=== PATIENT | male | born 1935 | race Caucasian/White ===

== ENCOUNTER → 2021-01-16 | Outpatient (CLI) | payer MEDICARE ==
[~2021-01-16] MED LIST: AMIO200T3 PO; AVOD0.5C PO; CRES5TAB PO; CYCL-707 PO; FLOM0.4C39 PO; HYDR2TAB2 PO; ISOVUE-300 61% 50ML VIAL As Ordered ONE; LIDOCAINE 1% MDV 20ML VIAL As Ordered ONE; LOSA50TA5 PO; MAGN500T6 PO; MAPA325T8 PO; META1TAB22 PO; PLAV1TAB2 PO; PRIL20CA9 PO; TRIAMCINOLONE ACETONIDE SUSP 40 MG/ML VIAL (J3301) As Ordered ONE
--- NOTE | 2021-01-16 17:33 | REP ---
INDICATION: LT HIP O A W/ PAIN. COMPARISON: None. TECHNIQUE: The procedure was performed under the direct supervision of Dr. Araujo. The benefits and risks including but not limited to pain infection and bleeding and anaphylaxis were explained to the patient and informed consent was obtained. The left femoral neck was localized using fluoroscopic guidance. The skin was prepped and draped in a sterile fashion. 1% lidocaine was used as a local anesthetic. Using fluoroscopic guidance a 22-gauge spinal needle was inserted and advanced to the femoral neck. 0.5 ml of Conray 43 was injected to verify placement. 6 cc of a solution containing 5 mL of 1% lidocaine and 1 ml of Kenalog 40 mg was injected. The needle was then removed. The patient tolerated the procedure well and there were no immediate complications. Less than 6 seconds of fluoro time was utilized for this procedure. FINDINGS: None IMPRESSION: Fluoroscopically guided left hip injection. <Electronically signed by Kurt Navarro > 01/16/21 151 <Electronically signed by Jean Paul Araujo > 01/16/21 [id number]
== END ==
LOC: M RADPRO 09:57
PROVIDERS: ATTEND Orthopaedic Surgery
DX: M16.12 Unilateral primary osteoarthritis, left hip (principal)
CPT/HCPCS: 20610; 77002; J3301; Q9967

== ENCOUNTER → 2023-09-11 | Outpatient (CLI) | payer MEDICARE ==
[~2023-09-11] MED LIST changes: +ALLO100T PO; -AMIO200T3 PO; +AMIO200T49 PO; +AMLO25TA PO; +CLOP75TA99 PO; +FINA5TAB2 PO; -ISOVUE-300 61% 50ML VIAL As Ordered ONE; +KETO10TAB PO; -PLAV1TAB2 PO; -TRIAMCINOLONE ACETONIDE SUSP 40 MG/ML VIAL (J3301) As Ordered ONE; +asa
[2023-09-11 09:26] VITALS: TEMP 97.4
[2023-09-11 09:54] LABS: INR 1.23; PROTHROMBIN TIME 15.1 SECONDS (12.5-14.5)
[2023-09-11 11:11] VITALS: BP 152/70; O2SAT 98
== END ==
LOC: M IRPRO 09:12
PROVIDERS: ATTEND Nurse Practitioner Family
DX: N28.1 Cyst of kidney, acquired (principal)

== ENCOUNTER 2023-09-16 18:47 | Emergency (ER) | payer MEDICARE ==
[~2023-09-16] VITALS: Ht 172.7 cm; Wt 89.3 kg
[~2023-09-16 18:47] MED LIST changes: -LIDOCAINE 1% MDV 20ML VIAL As Ordered ONE
[2023-09-16 18:52] VITALS: TEMP 99.7
[2023-09-16 20:01] LABS: BASO % 0.2 % (0.0-1.0); EOS % 0.3 % (0.0-3.0); HEMATOCRIT 36.2 % (42.0-52.0); HEMOGLOBIN 11.9 g/dl (13.5-17.5); LYMPH # 0.7 10^3/uL (1.5-5.0); LYMPH % 7.5 % (24.0-44.0); MEAN CORPUSCULAR HEMOGLOBIN 30.6 pg (27.0-33.0); MEAN CORPUSCULAR HGB CONC 32.9 g/dl (32.0-36.5); MEAN CORPUSCULAR VOLUME 93.1 fl (80.0-96.0); MONO # 0.8 10^3/uL (0.0-0.8); MONO % 8.5 % (2.0-8.0); NEUTROPHILS # 7.9 10^3/uL (1.5-8.5); NEUTROPHILS % 82.8 % (36.0-66.0); PLATELET COUNT, AUTOMATED 150 10^3/uL (150-450); RED BLOOD COUNT 3.89 10^6/uL (4.30-6.10); WHITE BLOOD COUNT 9.6 10^3/uL (4.0-10.0)
[2023-09-16 20:28] LABS: CALCIUM LEVEL 8.8 MG/DL (8.3-10.6); CREATININE FOR GFR 1.46 MG/DL (0.70-1.30); GLOMERULAR FILTRATION RATE 48.7 (>35); POTASSIUM SERUM 4.7 MMOL/L (3.5-5.1)
[2023-09-16] MEDS ORDERED: NS 1,000 ML IV ONE (20:50)
[2023-09-16] MEDS ORDERED: LORazepam 2 MG/ML 1ML VIAL IV STA (20:50)
[2023-09-16] MEDS ORDERED: KETOROLAC 30 MG/ML 1ML VIAL IV ONE (20:50)
[2023-09-16 21:39] VITALS: BP 145/67; O2SAT 97
[2023-09-16 21:40] LABS: ERYTHROCYTE SEDIMENTATION RATE 86 mm/hr (0-20)
[2023-09-16] MEDS ORDERED: OMEP-173 PO (22:19)
[2023-09-16] MEDS ORDERED: ACE65ERTAB PO (22:19)
[2023-09-16] MEDS ORDERED: ASPI81TA26 PO (22:22)
[2023-09-16] MEDS ORDERED: HOME MED LIST COMPLETE! XX SCH (22:25)
[2023-09-16] MEDS ORDERED: DOXYCYCLINE HYCLATE 100MG TABLET PO ONE (22:40)
[2023-09-16] MEDS ORDERED: DOXY-443 PO (22:42)
[2023-09-16] MEDS ORDERED: GABA-282 PO (22:42)
== END 2023-09-16 23:18 | disposition home or self-care (01) ==
LOC: M ED 18:47
DX: J18.9 Pneumonia, unspecified organism (principal); R63.4 Abnormal weight loss; M79.10 Myalgia, unspecified site; R10.9 Unspecified abdominal pain; I51.9 Heart disease, unspecified; Z79.899 Other long term (current) drug therapy; Z79.82 Long term (current) use of aspirin; Z85.038 Personal history of other malignant neoplasm of large intestine
CPT/HCPCS: 74021; 80048; 81001; 83605; 85025; 85652; 86140; 86618; 87040; 87077; 87486; 87581; 87633; 87798; 96374; 96375; 99284; J1885; J2060

== ENCOUNTER 2023-09-21 15:31 | Inpatient (IN) | payer MEDICARE ==
[~2023-09-21] VITALS: Ht 172.7 cm; Wt 91.7 kg
[~2023-09-21 15:31] MED LIST changes: +ACE65ERTAB PO; +ASPI81TA26 PO; +DOXY-443 PO; +GABA-282 PO; +OMEP-173 PO
[2023-09-21 17:13] LABS: BASO % 0.1 % (0.0-1.0); EOS % 0.5 % (0.0-3.0); HEMATOCRIT 33.6 % (42.0-52.0); HEMOGLOBIN 11.1 g/dl (13.5-17.5); LYMPH # 0.9 10^3/uL (1.5-5.0); LYMPH % 11.6 % (24.0-44.0); MEAN CORPUSCULAR HEMOGLOBIN 31.3 pg (27.0-33.0); MEAN CORPUSCULAR VOLUME 94.6 fl (80.0-96.0); MONO # 0.7 10^3/uL (0.0-0.8); MONO % 9.3 % (2.0-8.0); NEUTROPHILS # 5.8 10^3/uL (1.5-8.5); NEUTROPHILS % 77.7 % (36.0-66.0); PLATELET COUNT, AUTOMATED 161 10^3/uL (150-450); RED BLOOD COUNT 3.55 10^6/uL (4.30-6.10); WHITE BLOOD COUNT 7.5 10^3/uL (4.0-10.0)
[2023-09-21 17:28] LABS: ERYTHROCYTE SEDIMENTATION RATE 107 mm/hr (0-20)
[2023-09-21 17:41] LABS: LIPASE 22 U/L (12-53)
[2023-09-21 17:42] LABS: CPK CREATINE PHOSPHOKINASE 26 U/L (46-171)
[2023-09-21 17:43] LABS: RHEUMATOID FACTOR QUANT 31.2 IU/ML (<14)
[2023-09-21 17:48] LABS: ALBUMIN 2.5 G/DL (3.2-5.2); ALKALINE PHOSPHATASE 80 U/L (46-116); ALT/SGPT 55 U/L (7.0-40); AST/SGOT 39 U/L (<34); BILIRUBIN,DIRECT 0.2 MG/DL (<0.4); BILIRUBIN,TOTAL 0.4 MG/DL (0.3-1.2); BLOOD UREA NITROGEN 28 MG/DL (9-23); CALCIUM LEVEL 8.9 MG/DL (8.3-10.6); CARBON DIOXIDE LEVEL 26 MMOL/L (20-31); CHLORIDE LEVEL 105 MMOL/L (98-107); CREATININE FOR GFR 0.93 MG/DL (0.70-1.30); GLOMERULAR FILTRATION RATE > 60.0 (>35); GLUCOSE, FASTING 94 MG/DL (74-106); MAGNESIUM LEVEL 0.8 MG/DL (1.8-2.4); PHOSPHORUS LEVEL 3.3 MG/DL (2.4-5.1); SODIUM LEVEL 140 MMOL/L (136-145); THYROID STIMULATING HORMONE 0.931 uIU/ML (0.55-4.78); TOTAL 25(OH) VITAMIN D 33.8 NG/ML (20.0-100.0); TOTAL PROTEIN 6.7 G/DL (5.7-8.2)
[2023-09-21] MEDS ORDERED: MAG SULF 1GM/100ML (MAG RUN) 1 GM in IV 1 EA IV ONE (17:50)
[2023-09-21] MEDS ORDERED: D5W MINI IV ONE (18:05)
[2023-09-21] MEDS ORDERED: AMPICILLIN SOD IV ONE (18:05)
[2023-09-21] MEDS ORDERED: ACETAMINOPHEN TAB 650MG DOSE (2X325MG) PO PRN (18:15)
[2023-09-21] MEDS ORDERED: FINA1TAB12 PO (18:26)
[2023-09-21] MEDS ORDERED: DOXY100T27 PO (18:26)
[2023-09-21] MEDS ORDERED: GABA-282 PO (18:26)
[2023-09-21] MEDS ORDERED: HOME MED LIST COMPLETE! XX SCH (18:30)
[2023-09-21] MEDS ORDERED: FINA5TAB2 PO (18:37)
[2023-09-21] MEDS ORDERED: cefTRIAXone SOD 1 GM in D5W MINI-BAG PLUS 50 ML IV SCH (19:00)
[2023-09-21] MEDS: MAG SULF 1GM/100ML (MAG RUN) 1 GM in IV 1 EA IV SCH ×2 (19:01→20:31)
[2023-09-21] MEDS ORDERED: AMPICILLIN SOD 1 GM in D5W MINI-BAG PLUS 100 ML IV SCH (19:05)
[2023-09-21] MEDS ORDERED: AMPICILLIN SOD 2 GM in D5W MINI-BAG PLUS 100 ML IV SCH (19:15)
[2023-09-21] MEDS ORDERED: LR 1,000 ML IV SCH (19:20)
[2023-09-21] MEDS ORDERED: PILL CUTTER 1 EACH XX PRN (19:40)
[2023-09-21] MEDS: TAMSULOSIN 0.4 MG CAP PO SCH (20:31)
[2023-09-21 20:41] LABS: APPEARANCE, URINE CLEAR (CLEAR); BACTERIA, URINE AUTO NEGATIVE (NEGATIVE); BILIRUBIN, URINE AUTO NEGATIVE (NEGATIVE); BLOOD, URINE BLOOD NEGATIVE (NEGATIVE); COLOR, URINE YELLOW (YELLOW); GLUCOSE, URINE (UA) AUTO NEGATIVE (NEGATIVE); KETONE, URINE AUTO NEGATIVE (NEGATIVE); LEUKOCYTE ESTERASE, URINE AUTO NEGATIVE (NEGATIVE); MUCUS, URINE SMALL (NEGATIVE); NITRITE, URINE AUTO NEGATIVE (NEGATIVE); PROTEIN, URINE AUTO NEGATIVE (NEGATIVE); RBC, URINE AUTO 0 /HPF (0-3); SPECIFIC GRAVITY URINE AUTO 1.019 (1.002-1.035); SQUAMOUS EPITHELIAL CELL UR AU 1 /HPF (0-6); UROBILINOGEN, URINE AUTO 0.2 mg/dL (0.0-2.0); WBC, URINE AUTO 0 /HPF (0-3)
[2023-09-21 20:42] LABS: INR 1.26; PROTHROMBIN TIME 15.4 SECONDS (12.5-14.5)
[2023-09-21] MEDS: AMPICILLIN SOD 2 GM in D5W MINI-BAG PLUS 100 ML IV SCH (21:09)
[2023-09-21 21:35] VITALS: BP 162/71; TEMP 97.1; O2SAT 96
[2023-09-21] MEDS: HEPARIN SOD (PORCINE) 5000UNITS/ML 1ML VIAL/SYRINGE SC SCH (21:50)
[2023-09-21 23:17] VITALS: BP 145/69; TEMP 97.9; O2SAT 95
[2023-09-22] VITALS (7 sets, daily range): BP systolic 137–158; BP diastolic 63–71; TEMP 97.3–98.3; O2SAT 95–98
[2023-09-22] MEDS: AMPICILLIN SOD 2 GM in D5W MINI-BAG PLUS 100 ML IV SCH ×7 (00:41→23:28)
[2023-09-22 05:26] LABS: HEMOGLOBIN 10.6 g/dl (13.5-17.5); MEAN CORPUSCULAR HEMOGLOBIN 30.8 pg (27.0-33.0); MEAN CORPUSCULAR HGB CONC 33.1 g/dl (32.0-36.5); PLATELET COUNT, AUTOMATED 149 10^3/uL (150-450); RED BLOOD COUNT 3.44 10^6/uL (4.30-6.10); WHITE BLOOD COUNT 6.2 10^3/uL (4.0-10.0)
[2023-09-22] MEDS: HEPARIN SOD (PORCINE) 5000UNITS/ML 1ML VIAL/SYRINGE SC SCH ×2 (05:39→20:18)
[2023-09-22 05:53] LABS: ALBUMIN 2.3 G/DL (3.2-5.2); ALKALINE PHOSPHATASE 72 U/L (46-116); ALT/SGPT 45 U/L (7.0-40); AST/SGOT 32 U/L (<34); BILIRUBIN,TOTAL 0.4 MG/DL (0.3-1.2); BLOOD UREA NITROGEN 23 MG/DL (9-23); CALCIUM LEVEL 8.8 MG/DL (8.3-10.6); CARBON DIOXIDE LEVEL 27 MMOL/L (20-31); CHLORIDE LEVEL 104 MMOL/L (98-107); CREATININE FOR GFR 0.84 MG/DL (0.70-1.30); GLOMERULAR FILTRATION RATE > 60.0 (>35); GLUCOSE, FASTING 105 MG/DL (74-106); MAGNESIUM LEVEL 1.1 MG/DL (1.8-2.4); POTASSIUM SERUM 3.8 MMOL/L (3.5-5.1); SODIUM LEVEL 139 MMOL/L (136-145)
[2023-09-22] MEDS: MAG SULF 1GM/100ML (MAG RUN) 1 GM in IV 1 EA IV SCH ×5 (06:23→18:59)
[2023-09-22] MEDS: ASPIRIN 81MG ENTERIC TABLET PO SCH (08:54)
[2023-09-22] MEDS: LOSARTAN 50MG TABLET PO SCH (08:54)
[2023-09-22] MEDS: FINASTERIDE 5MG TAB PO SCH (08:54)
[2023-09-22] MEDS: allopurinoL 100 MG TAB PO SCH (08:54)
[2023-09-22] MEDS: ROSUVASTATIN 10 MG TAB (CRESTOR) PO SCH (08:54)
[2023-09-22] MEDS: GABAPENTIN 300 MG CAP PO SCH ×3 (08:55→21:09)
[2023-09-22] MEDS ORDERED: OMEPRAZOLE 20MG CAP PO SCH (09:00)
[2023-09-22] MEDS ORDERED: MIRALAX *UNIT DOSE* 17GM PACKET PO PRN (13:00)
[2023-09-22] MEDS ORDERED: KETOROLAC 30 MG/ML 1ML VIAL IV ONE (13:15)
[2023-09-22] MEDS: GASTROGRAFIN SOLUTION 30ML PO SCH ×2 (14:45→15:34)
[2023-09-22] MEDS ORDERED: ISOVUE-370 76% 100ML VIAL As Ordered ONE (16:09)
[2023-09-22] MEDS: SENOKOT S TAB PO SCH (20:18)
[2023-09-22] MEDS: MAGNESIUM OXIDE 400MG TAB (MAG-OX) PO SCH (20:18)
[2023-09-22] MEDS: TAMSULOSIN 0.4 MG CAP PO SCH (20:18)
[2023-09-23] MEDS: AMPICILLIN SOD 2 GM in D5W MINI-BAG PLUS 100 ML IV SCH ×4 (03:34→16:57)
[2023-09-23 03:35] VITALS: BP 132/62; TEMP 97.4; O2SAT 97
[2023-09-23 05:34] LABS: BASO % 0.2 % (0.0-1.0); EOS # 0.1 10^3/uL (0.0-0.5); EOS % 1.1 % (0.0-3.0); HEMATOCRIT 34.7 % (42.0-52.0); HEMOGLOBIN 11.4 g/dl (13.5-17.5); LYMPH # 0.7 10^3/uL (1.5-5.0); MEAN CORPUSCULAR HEMOGLOBIN 30.6 pg (27.0-33.0); MEAN CORPUSCULAR HGB CONC 32.9 g/dl (32.0-36.5); MEAN CORPUSCULAR VOLUME 93.3 fl (80.0-96.0); MONO # 0.6 10^3/uL (0.0-0.8); MONO % 9.1 % (2.0-8.0); NEUTROPHILS # 4.9 10^3/uL (1.5-8.5); NEUTROPHILS % 77.8 % (36.0-66.0); PLATELET COUNT, AUTOMATED 149 10^3/uL (150-450); RED BLOOD COUNT 3.72 10^6/uL (4.30-6.10); WHITE BLOOD COUNT 6.4 10^3/uL (4.0-10.0)
[2023-09-23] MEDS: GABAPENTIN 300 MG CAP PO SCH ×3 (06:02→20:58)
[2023-09-23 06:08] LABS: BLOOD UREA NITROGEN 22 MG/DL (9-23); CALCIUM LEVEL 8.9 MG/DL (8.3-10.6); CARBON DIOXIDE LEVEL 29 MMOL/L (20-31); CHLORIDE LEVEL 100 MMOL/L (98-107); CREATININE FOR GFR 0.97 MG/DL (0.70-1.30); GLOMERULAR FILTRATION RATE > 60.0 (>35); GLUCOSE, FASTING 118 MG/DL (74-106); MAGNESIUM LEVEL 1.8 MG/DL (1.8-2.4); POTASSIUM SERUM 4.2 MMOL/L (3.5-5.1); SODIUM LEVEL 136 MMOL/L (136-145)
[2023-09-23 08:00] VITALS: BP 147/67; TEMP 97.8; O2SAT 96
[2023-09-23] MEDS: LOSARTAN 50MG TABLET PO SCH (08:45)
[2023-09-23] MEDS: FINASTERIDE 5MG TAB PO SCH (08:45)
[2023-09-23] MEDS: allopurinoL 100 MG TAB PO SCH (08:45)
[2023-09-23] MEDS: ROSUVASTATIN 10 MG TAB (CRESTOR) PO SCH (08:45)
[2023-09-23] MEDS: ASPIRIN 81MG ENTERIC TABLET PO SCH (08:45)
[2023-09-23] MEDS: PANTOPRAZOLE 40MG TAB (PROTONIX) PO SCH (08:45)
[2023-09-23] MEDS: MAGNESIUM OXIDE 400MG TAB (MAG-OX) PO SCH ×3 (08:46→20:43)
[2023-09-23] MEDS: HEPARIN SOD (PORCINE) 5000UNITS/ML 1ML VIAL/SYRINGE SC SCH (08:46)
[2023-09-23 09:11] LABS: ERYTHROCYTE SEDIMENTATION RATE 89 mm/hr (0-20)
[2023-09-23 11:58] VITALS: BP 128/85; TEMP 97.8; O2SAT 97
[2023-09-23 16:08] VITALS: BP 129/61; TEMP 98.9; O2SAT 97
[2023-09-23 18:57] VITALS: BP 147/64; TEMP 98.2; O2SAT 98
[2023-09-23] MEDS ORDERED: DAPTOmycin 750 MG in NS 50 ML IV SCH (20:00)
[2023-09-23 20:32] VITALS: BP 136/70; TEMP 98.6; O2SAT 96
[2023-09-23] MEDS: DOXYCYCLINE HYCLATE 100MG TABLET PO SCH (20:43)
[2023-09-23] MEDS: TAMSULOSIN 0.4 MG CAP PO SCH (20:43)
[2023-09-23] MEDS: SENOKOT S TAB PO SCH (20:43)
[2023-09-24] MEDS: GABAPENTIN 300 MG CAP PO SCH ×3 (05:13→22:46)
[2023-09-24 06:00] VITALS: BP 147/66; TEMP 98.6; O2SAT 98
[2023-09-24 06:10] LABS: BASO % 0.2 % (0.0-1.0); EOS # 0.1 10^3/uL (0.0-0.5); EOS % 1.2 % (0.0-3.0); HEMATOCRIT 31.6 % (42.0-52.0); HEMOGLOBIN 10.6 g/dl (13.5-17.5); LYMPH # 0.8 10^3/uL (1.5-5.0); MEAN CORPUSCULAR HEMOGLOBIN 31.3 pg (27.0-33.0); MEAN CORPUSCULAR HGB CONC 33.5 g/dl (32.0-36.5); MEAN CORPUSCULAR VOLUME 93.2 fl (80.0-96.0); MONO # 0.7 10^3/uL (0.0-0.8); NEUTROPHILS # 4.3 10^3/uL (1.5-8.5); NEUTROPHILS % 72.8 % (36.0-66.0); PLATELET COUNT, AUTOMATED 145 10^3/uL (150-450); RED BLOOD COUNT 3.39 10^6/uL (4.30-6.10); WHITE BLOOD COUNT 5.9 10^3/uL (4.0-10.0)
[2023-09-24 06:38] LABS: BLOOD UREA NITROGEN 23 MG/DL (9-23); CALCIUM LEVEL 8.9 MG/DL (8.3-10.6); CARBON DIOXIDE LEVEL 28 MMOL/L (20-31); CHLORIDE LEVEL 103 MMOL/L (98-107); CREATININE FOR GFR 1.01 MG/DL (0.70-1.30); GLOMERULAR FILTRATION RATE > 60.0 (>35); GLUCOSE, FASTING 102 MG/DL (74-106); MAGNESIUM LEVEL 1.6 MG/DL (1.8-2.4); POTASSIUM SERUM 4.3 MMOL/L (3.5-5.1); SODIUM LEVEL 136 MMOL/L (136-145)
[2023-09-24] MEDS: DOXYCYCLINE HYCLATE 100MG TABLET PO SCH ×2 (08:19→20:11)
[2023-09-24] MEDS: FINASTERIDE 5MG TAB PO SCH (08:19)
[2023-09-24] MEDS: MAG SULF 1GM/100ML (MAG RUN) 1 GM in IV 1 EA IV SCH ×2 (08:19→09:26)
[2023-09-24] MEDS: ASPIRIN 81MG ENTERIC TABLET PO SCH (08:19)
[2023-09-24] MEDS: APIXABAN 5 MG TAB (ELIQUIS) PO SCH ×2 (08:19→20:11)
[2023-09-24] MEDS: allopurinoL 100 MG TAB PO SCH (08:20)
[2023-09-24] MEDS: LOSARTAN 50MG TABLET PO SCH (08:20)
[2023-09-24] MEDS: MAGNESIUM OXIDE 400MG TAB (MAG-OX) PO SCH ×3 (08:20→20:10)
[2023-09-24] MEDS: PANTOPRAZOLE 40MG TAB (PROTONIX) PO SCH (08:20)
[2023-09-24] MEDS: ROSUVASTATIN 10 MG TAB (CRESTOR) PO SCH (08:20)
[2023-09-24] MEDS ORDERED: FLUZONE HIGH DOSE(65YR UP)QUAD/PF 240MCG/0.7ML SYRINGE IM.IMMUN ONE (09:50)
[2023-09-24 12:08] LABS: ANTINUCLEAR ANTIBODIES DIRECT Negative (Negative)
[2023-09-24] MEDS ORDERED: FUROSEMIDE 40MG/4ML VIAL IV ONE (12:10)
[2023-09-24 14:00] VITALS: BP 146/65; TEMP 98.2; O2SAT 100
[2023-09-24] MEDS ORDERED: DAPTOmycin 750 MG in NS 50 ML IV SCH (17:00)
[2023-09-24 19:29] VITALS: BP 146/67; TEMP 98.8; O2SAT 95
[2023-09-24] MEDS: SENOKOT S TAB PO SCH (20:10)
[2023-09-24] MEDS: TAMSULOSIN 0.4 MG CAP PO SCH (20:11)
[2023-09-25 05:11] VITALS: BP 154/64; TEMP 99; O2SAT 92
[2023-09-25] MEDS: MAG SULF 1GM/100ML (MAG RUN) 1 GM in IV 1 EA IV SCH ×2 (05:12→06:19)
[2023-09-25 05:36] LABS: BASO % 0.2 % (0.0-1.0); EOS # 0.1 10^3/uL (0.0-0.5); EOS % 0.9 % (0.0-3.0); HEMATOCRIT 34.5 % (42.0-52.0); HEMOGLOBIN 11.7 g/dl (13.5-17.5); LYMPH # 0.5 10^3/uL (1.5-5.0); LYMPH % 7.4 % (24.0-44.0); MEAN CORPUSCULAR HEMOGLOBIN 31.9 pg (27.0-33.0); MEAN CORPUSCULAR HGB CONC 33.9 g/dl (32.0-36.5); MONO # 0.6 10^3/uL (0.0-0.8); MONO % 8.6 % (2.0-8.0); NEUTROPHILS # 5.4 10^3/uL (1.5-8.5); NEUTROPHILS % 82.1 % (36.0-66.0); PLATELET COUNT, AUTOMATED 156 10^3/uL (150-450); RED BLOOD COUNT 3.67 10^6/uL (4.30-6.10); WHITE BLOOD COUNT 6.5 10^3/uL (4.0-10.0)
[2023-09-25 06:03] LABS: CALCIUM LEVEL 9.3 MG/DL (8.3-10.6); CREATININE FOR GFR 1.22 MG/DL (0.70-1.30); MAGNESIUM LEVEL 1.6 MG/DL (1.8-2.4); POTASSIUM SERUM 4.5 MMOL/L (3.5-5.1)
[2023-09-25] MEDS: GABAPENTIN 300 MG CAP PO SCH ×2 (06:20→14:15)
[2023-09-25] MEDS: allopurinoL 100 MG TAB PO SCH (08:06)
[2023-09-25] MEDS: ASPIRIN 81MG ENTERIC TABLET PO SCH (08:06)
[2023-09-25] MEDS: ROSUVASTATIN 10 MG TAB (CRESTOR) PO SCH (08:06)
[2023-09-25] MEDS: DOXYCYCLINE HYCLATE 100MG TABLET PO SCH (08:06)
[2023-09-25] MEDS: FUROSEMIDE 40MG/4ML VIAL IV SCH ×2 (08:06→08:11)
[2023-09-25] MEDS: APIXABAN 5 MG TAB (ELIQUIS) PO SCH (08:06)
[2023-09-25 08:07] VITALS: BP 154/64
[2023-09-25] MEDS: FINASTERIDE 5MG TAB PO SCH (08:07)
[2023-09-25] MEDS: PANTOPRAZOLE 40MG TAB (PROTONIX) PO SCH (08:07)
[2023-09-25] MEDS: LOSARTAN 50MG TABLET PO SCH (08:07)
[2023-09-25] MEDS: MAGNESIUM OXIDE 400MG TAB (MAG-OX) PO SCH ×2 (08:07→16:08)
[2023-09-25 10:19] LABS: DRVV SCREEN 53.6 SECONDS
[2023-09-25 10:24] LABS: PTT LUPUS TYPE ANTICOAG SCREEN 1.38 (0-1.20)
[2023-09-25 10:30] LABS: DRVV CONFIRM 45.3 SECONDS; LUPUS CONFIRM RATIO 1.21
[2023-09-25 10:31] LABS: NORMALIZED RATIO 1.14 (0.00-1.20)
[2023-09-25] MEDS ORDERED: ELIQ5TAB PO (11:59)
[2023-09-25] MEDS ORDERED: DOXY100T PO ×2 (11:59→13:11)
[2023-09-25] MEDS ORDERED: XARE20TA PO (13:11)
[2023-09-25 13:29] VITALS: BP 141/60; TEMP 99.5
[2023-09-26 14:10] LABS: ANCA-ATYPICAL <1:20 titer (Neg:<1:20); CYCLIC CITRULLINATED PEPTIDE < 1 units (0-19); CYTOPLASMIC NEUTROP AB ANCA-C <1:20 titer (Neg:<1:20); PERINUCLEAR AB ANCA-P <1:20 titer (Neg:<1:20)
== END 2023-09-25 16:30 | disposition home health service (06) | DRG 289 ==
LOC: M ED 15:31 → M ED INP 18:15 → ENRESERV 19:50 → CANRESERV 19:50 → ENRESERV 19:52 → M PCU 21:36 → M MSPAV 09-23 18:50
PROVIDERS: ADMIT Internal Medicine; ATTEND Internal Medicine Nephrology
PROC: B246ZZZ Ultrasonography of Right and Left Heart (ICD-10-PCS; principal; 2023-09-23)
DX: I33.0 Acute and subacute infective endocarditis (principal); I48.92 Unspecified atrial flutter; A69.20 Lyme disease, unspecified; I76 Septic arterial embolism; Q61.3 Polycystic kidney, unspecified; I10 Essential (primary) hypertension; I25.10 Atherosclerotic heart disease of native coronary artery without angina pectoris; I48.0 Paroxysmal atrial fibrillation; R53.81 Other malaise; K21.9 Gastro-esophageal reflux disease without esophagitis; K76.0 Fatty (change of) liver, not elsewhere classified; R63.4 Abnormal weight loss; M41.9 Scoliosis, unspecified; E78.5 Hyperlipidemia, unspecified; B95.2 Enterococcus as the cause of diseases classified elsewhere; D73.5 Infarction of spleen; M35.3 Polymyalgia rheumatica; N40.0 Benign prostatic hyperplasia without lower urinary tract symptoms; M10.9 Gout, unspecified; K40.20 Bilateral inguinal hernia, without obstruction or gangrene, not specified as recurrent; E83.42 Hypomagnesemia; Z85.038 Personal history of other malignant neoplasm of large intestine; Z85.05 Personal history of malignant neoplasm of liver; Z79.82 Long term (current) use of aspirin; Z79.899 Other long term (current) drug therapy; Z95.3 Presence of xenogenic heart valve; Z90.49 Acquired absence of other specified parts of digestive tract; Z96.642 Presence of left artificial hip joint; Z98.1 Arthrodesis status; Z98.62 Peripheral vascular angioplasty status; Z95.5 Presence of coronary angioplasty implant and graft

== ENCOUNTER 2023-09-27 09:08 | Inpatient (IN) | payer MEDICARE ==
[~2023-09-27] VITALS: Ht 172.7 cm; Wt 89.5 kg
[~2023-09-27 09:08] MED LIST changes: +DOXY100T PO; +DOXY100T27 PO; +ELIQ5TAB PO; +FINA1TAB12 PO; +XARE20TA PO
[2023-09-27] MEDS ORDERED: PANTOPRAZOLE 40MG VIAL IV ONE (09:50)
[2023-09-27 10:05] LABS: BASO % 0.2 % (0.0-1.0); HEMATOCRIT 31.6 % (42.0-52.0); HEMOGLOBIN 10.5 g/dl (13.5-17.5); LYMPH # 0.5 10^3/uL (1.5-5.0); LYMPH % 10.9 % (24.0-44.0); MEAN CORPUSCULAR HEMOGLOBIN 31.5 pg (27.0-33.0); MEAN CORPUSCULAR HGB CONC 33.2 g/dl (32.0-36.5); MEAN CORPUSCULAR VOLUME 94.9 fl (80.0-96.0); MONO # 0.5 10^3/uL (0.0-0.8); MONO % 11.4 % (2.0-8.0); NEUTROPHILS # 3.5 10^3/uL (1.5-8.5); NEUTROPHILS % 76.8 % (36.0-66.0); PLATELET COUNT, AUTOMATED 120 10^3/uL (150-450); RED BLOOD COUNT 3.33 10^6/uL (4.30-6.10); WHITE BLOOD COUNT 4.5 10^3/uL (4.0-10.0)
[2023-09-27 10:16] LABS: INR 2.1; PROTHROMBIN TIME 22.8 SECONDS (12.5-14.5)
[2023-09-27 10:31] LABS: LIPASE 22 U/L (12-53)
[2023-09-27 11:28] LABS: ALBUMIN 2.4 G/DL (3.2-5.2); ALKALINE PHOSPHATASE 70 U/L (46-116); ALT/SGPT 62 U/L (7.0-40); AST/SGOT 60 U/L (<34); BILIRUBIN,DIRECT 0.2 MG/DL (<0.4); BILIRUBIN,TOTAL 0.4 MG/DL (0.3-1.2); BLOOD UREA NITROGEN 36 MG/DL (9-23); CALCIUM LEVEL 8.4 MG/DL (8.3-10.6); CARBON DIOXIDE LEVEL 26 MMOL/L (20-31); CHLORIDE LEVEL 97 MMOL/L (98-107); CREATININE FOR GFR 1.13 MG/DL (0.70-1.30); GLOMERULAR FILTRATION RATE > 60.0 (>35); GLUCOSE, FASTING 116 MG/DL (74-106); POTASSIUM SERUM 3.9 MMOL/L (3.5-5.1); SODIUM LEVEL 132 MMOL/L (136-145); TOTAL PROTEIN 6.3 G/DL (5.7-8.2)
[2023-09-27] MEDS ORDERED: D5W/0.9% SODIUM CHLORIDE 1,000 ML IV SCH (12:00)
[2023-09-27] MEDS ORDERED: MED REC IN PROGRESS XX SCH (12:40)
[2023-09-27] MEDS: SUCRALFATE SUSP 1GM/10ML UD PO SCH ×2 (12:43→18:06)
[2023-09-27 13:52] LABS: HEMATOCRIT 30.1 % (42.0-52.0)
[2023-09-27] MEDS ORDERED: ONDANSETRON 4MG 2ML VIAL IV PRN (14:15)
[2023-09-27] MEDS ORDERED: DAPT500V8 IV (14:16)
[2023-09-27] MEDS ORDERED: HOME MED LIST COMPLETE! XX SCH (14:25)
[2023-09-27 14:42] LABS: HEMATOCRIT 29.7 % (42.0-52.0)
[2023-09-27] MEDS: DOXYCYCLINE HYCLATE 100 MG in D5W MINI-BAG PLUS 100 ML IV SCH (14:45)
[2023-09-27 14:57] LABS: D-DIMER QUANT 1.78 ug/mL (<0.5)
[2023-09-27 15:23] LABS: C REACTIVE PROTEIN QUANTITATIV 4.6 MG/DL (<1.0)
[2023-09-27 15:32] VITALS: O2SAT 92
[2023-09-27 15:32] LABS: PROCALCITONIN 0.09 ng/ml
[2023-09-27 16:00] VITALS: BP 147/65; TEMP 97.5; O2SAT 92
[2023-09-27] MEDS ORDERED: REMDESIVIR 200 MG in NS 250 ML IV ONE (17:00)
[2023-09-27 19:55] VITALS: BP 156/68; TEMP 97.6; O2SAT 95
[2023-09-27] MEDS: TAMSULOSIN 0.4 MG CAP PO SCH (21:25)
[2023-09-27] MEDS ORDERED: ACETAMINOPHEN 500 MG TAB PO ONE (21:25)
[2023-09-27] MEDS: PANTOPRAZOLE 40MG VIAL IV SCH (21:25)
[2023-09-27] MEDS: DAPTOmycin 750 MG in NS 50 ML IV SCH (21:25)
[2023-09-27] MEDS: MAG SULF 1GM/100ML (MAG RUN) 1 GM in IV 1 EA IV SCH (22:52)
[2023-09-28 00:30] VITALS: BP 131/63; TEMP 97.8; O2SAT 93
[2023-09-28 00:33] LABS: HEMATOCRIT 28.4 % (42.0-52.0); HEMOGLOBIN 9.5 g/dl (13.5-17.5)
[2023-09-28] MEDS: MAG SULF 1GM/100ML (MAG RUN) 1 GM in IV 1 EA IV SCH ×2 (00:34→02:29)
[2023-09-28] MEDS: SUCRALFATE SUSP 1GM/10ML UD PO SCH ×5 (00:34→23:06)
[2023-09-28 03:50] VITALS: BP 112/55; TEMP 96.7; O2SAT 95
[2023-09-28] MEDS: DOXYCYCLINE HYCLATE 100 MG in D5W MINI-BAG PLUS 100 ML IV SCH (04:06)
[2023-09-28 06:24] LABS: BASO % 0.4 % (0.0-1.0); EOS % 0.8 % (0.0-3.0); HEMATOCRIT 30.1 % (42.0-52.0); HEMOGLOBIN 10.1 g/dl (13.5-17.5); LYMPH # 0.8 10^3/uL (1.5-5.0); LYMPH % 31.3 % (24.0-44.0); MEAN CORPUSCULAR HEMOGLOBIN 31.6 pg (27.0-33.0); MEAN CORPUSCULAR HGB CONC 33.6 g/dl (32.0-36.5); MEAN CORPUSCULAR VOLUME 94.1 fl (80.0-96.0); MONO # 0.4 10^3/uL (0.0-0.8); MONO % 13.4 % (2.0-8.0); NEUTROPHILS # 1.4 10^3/uL (1.5-8.5); NEUTROPHILS % 53.3 % (36.0-66.0); PLATELET COUNT, AUTOMATED 109 10^3/uL (150-450); WHITE BLOOD COUNT 2.6 10^3/uL (4.0-10.0)
[2023-09-28 07:27] LABS: GLOMERULAR FILTRATION RATE > 60.0 (>35); GLUCOSE, FASTING 107 MG/DL (74-106)
[2023-09-28 07:30] LABS: BLOOD UREA NITROGEN 27 MG/DL (9-23); POTASSIUM SERUM 3.3 MMOL/L (3.5-5.1); SODIUM LEVEL 137 MMOL/L (136-145)
[2023-09-28 07:31] LABS: ALT/SGPT 53 U/L (7.0-40); AST/SGOT 49 U/L (<34); CALCIUM LEVEL 8.4 MG/DL (8.3-10.6); CARBON DIOXIDE LEVEL 26.3 MMOL/L (20-31); CHLORIDE LEVEL 102 MMOL/L (98-107)
[2023-09-28 07:32] LABS: ALBUMIN 2.1 G/DL (3.2-5.2); ALKALINE PHOSPHATASE 64 U/L (46-116); BILIRUBIN,DIRECT 0.1 MG/DL (<0.4); BILIRUBIN,TOTAL 0.3 MG/DL (0.3-1.2); FERRITIN 562.2 NG/ML (10.5-307.3); TOTAL PROTEIN 5.7 G/DL (5.7-8.2)
[2023-09-28 07:39] LABS: ERYTHROCYTE SEDIMENTATION RATE 45 mm/hr (0-20)
[2023-09-28 07:41] VITALS: BP 138/63; TEMP 96.9; O2SAT 97
[2023-09-28] MEDS: allopurinoL 100 MG TAB PO SCH (08:44)
[2023-09-28] MEDS: FUROSEMIDE 40MG/4ML VIAL IV SCH ×2 (08:44→09:00)
[2023-09-28] MEDS: PANTOPRAZOLE 40MG VIAL IV SCH ×2 (08:44→23:06)
[2023-09-28] MEDS: FINASTERIDE 5MG TAB PO SCH (08:44)
[2023-09-28] MEDS: ROSUVASTATIN 10 MG TAB (CRESTOR) PO SCH (08:44)
[2023-09-28] MEDS ORDERED: POTASSIUM CHLORIDE 10MEQ SR TABLET PO ONE (10:00)
[2023-09-28 11:20] VITALS: BP 139/64; TEMP 97.3; O2SAT 93
[2023-09-28 12:09] LABS: HEMATOCRIT 31.3 % (42.0-52.0); HEMOGLOBIN 10.4 g/dl (13.5-17.5)
[2023-09-28] MEDS: DOXYCYCLINE HYCLATE 100MG TABLET PO SCH ×2 (13:11→23:06)
[2023-09-28] MEDS: REMDESIVIR 100 MG in NS 250 ML IV SCH (17:32)
[2023-09-28 18:24] LABS: HEMATOCRIT 31.7 % (42.0-52.0); HEMOGLOBIN 10.7 g/dl (13.5-17.5)
[2023-09-28] MEDS: DAPTOmycin 750 MG in NS 50 ML IV SCH (18:51)
[2023-09-28 18:58] VITALS: BP 150/60; TEMP 98.2; O2SAT 97
[2023-09-28 20:20] VITALS: BP 144/66; TEMP 98.1; O2SAT 93
[2023-09-28] MEDS ORDERED: RAMELTEON 8 MG TAB (ROZEREM) PO PRN (20:30)
[2023-09-28] MEDS: TAMSULOSIN 0.4 MG CAP PO SCH (23:06)
[2023-09-29 00:30] LABS: HEMATOCRIT 29.9 % (42.0-52.0); HEMOGLOBIN 10.2 g/dl (13.5-17.5)
[2023-09-29 05:35] LABS: BASO % 0.3 % (0.0-1.0); EOS % 0.6 % (0.0-3.0); HEMATOCRIT 29.5 % (42.0-52.0); HEMOGLOBIN 9.9 g/dl (13.5-17.5); LYMPH # 0.8 10^3/uL (1.5-5.0); LYMPH % 25.2 % (24.0-44.0); MEAN CORPUSCULAR HGB CONC 33.6 g/dl (32.0-36.5); MEAN CORPUSCULAR VOLUME 92.5 fl (80.0-96.0); MONO # 0.4 10^3/uL (0.0-0.8); MONO % 11.8 % (2.0-8.0); NEUTROPHILS # 1.9 10^3/uL (1.5-8.5); NEUTROPHILS % 61.5 % (36.0-66.0); PLATELET COUNT, AUTOMATED 117 10^3/uL (150-450); RED BLOOD COUNT 3.19 10^6/uL (4.30-6.10); WHITE BLOOD COUNT 3.1 10^3/uL (4.0-10.0)
[2023-09-29] MEDS ORDERED: SIMETHICONE 80MG CHEW TAB PO PRN (05:40)
[2023-09-29] MEDS: SUCRALFATE SUSP 1GM/10ML UD PO SCH ×4 (05:43→23:16)
[2023-09-29 05:58] VITALS: BP 165/65; TEMP 98.1; O2SAT 93
[2023-09-29 06:02] LABS: BLOOD UREA NITROGEN 23 MG/DL (9-23); CALCIUM LEVEL 8.2 MG/DL (8.3-10.6); CARBON DIOXIDE LEVEL 27 MMOL/L (20-31); CHLORIDE LEVEL 103 MMOL/L (98-107); CREATININE FOR GFR 0.97 MG/DL (0.70-1.30); GLOMERULAR FILTRATION RATE > 60.0 (>35); GLUCOSE, FASTING 88 MG/DL (74-106); POTASSIUM SERUM 3.8 MMOL/L (3.5-5.1); SODIUM LEVEL 138 MMOL/L (136-145)
[2023-09-29] MEDS: FUROSEMIDE 40MG/4ML VIAL IV SCH (08:35)
[2023-09-29] MEDS: DOXYCYCLINE HYCLATE 100MG TABLET PO SCH ×2 (08:35→20:20)
[2023-09-29] MEDS: FINASTERIDE 5MG TAB PO SCH (08:35)
[2023-09-29] MEDS: PANTOPRAZOLE 40MG VIAL IV SCH ×2 (08:35→20:21)
[2023-09-29] MEDS: allopurinoL 100 MG TAB PO SCH (08:35)
[2023-09-29] MEDS: ROSUVASTATIN 10 MG TAB (CRESTOR) PO SCH (08:35)
[2023-09-29 14:00] VITALS: BP 117/58; TEMP 97.2; O2SAT 97
[2023-09-29] MEDS: REMDESIVIR 100 MG in NS 250 ML IV SCH (17:19)
[2023-09-29] MEDS: RIVAROXABAN 15MG TAB (XARELTO) PO SCH (17:20)
[2023-09-29] MEDS: DAPTOmycin 750 MG in NS 50 ML IV SCH (18:23)
[2023-09-29 20:00] VITALS: BP 129/65; TEMP 98.2; O2SAT 95
[2023-09-29] MEDS: TAMSULOSIN 0.4 MG CAP PO SCH (20:20)
[2023-09-30 04:12] VITALS: BP 136/68; TEMP 98.1; O2SAT 95
[2023-09-30] MEDS: SUCRALFATE SUSP 1GM/10ML UD PO SCH ×3 (05:12→17:07)
[2023-09-30 06:18] LABS: HEMATOCRIT 30.7 % (42.0-52.0); HEMOGLOBIN 10.2 g/dl (13.5-17.5); MEAN CORPUSCULAR HGB CONC 33.2 g/dl (32.0-36.5); MEAN CORPUSCULAR VOLUME 93.3 fl (80.0-96.0); PLATELET COUNT, AUTOMATED 118 10^3/uL (150-450); RED BLOOD COUNT 3.29 10^6/uL (4.30-6.10); WHITE BLOOD COUNT 3.3 10^3/uL (4.0-10.0)
[2023-09-30 06:30] LABS: BLOOD UREA NITROGEN 26 MG/DL (9-23); CALCIUM LEVEL 8.2 MG/DL (8.3-10.6); CARBON DIOXIDE LEVEL 28 MMOL/L (20-31); CHLORIDE LEVEL 104 MMOL/L (98-107); CREATININE FOR GFR 1.05 MG/DL (0.70-1.30); GLOMERULAR FILTRATION RATE > 60.0 (>35); GLUCOSE, FASTING 91 MG/DL (74-106); POTASSIUM SERUM 3.7 MMOL/L (3.5-5.1); SODIUM LEVEL 141 MMOL/L (136-145)
[2023-09-30 07:23] LABS: ATYPICAL LYMPH 18 % (0-5); BASOPHILS 2 % (0-1); EOSINOPHILS 1 % (0-3); LYMPHOCYTES 11 % (16-44); MONOCYTES 11 % (0-5); NEUTROPHILS 57 % (28-66)
[2023-09-30 07:24] LABS: PLATELET ESTIMATE DECREASED (NORMAL)
[2023-09-30] MEDS ORDERED: FUROSEMIDE 40 MG TAB PO SCH (09:00)
[2023-09-30] MEDS: PANTOPRAZOLE 40MG VIAL IV SCH (09:26)
[2023-09-30] MEDS: ROSUVASTATIN 10 MG TAB (CRESTOR) PO SCH (09:26)
[2023-09-30] MEDS: FINASTERIDE 5MG TAB PO SCH (09:26)
[2023-09-30] MEDS: DOXYCYCLINE HYCLATE 100MG TABLET PO SCH (09:26)
[2023-09-30] MEDS: allopurinoL 100 MG TAB PO SCH (09:26)
[2023-09-30 14:00] VITALS: BP 130/61; TEMP 98.1; O2SAT 96
[2023-09-30] MEDS ORDERED: SUCR1TA PO (15:27)
[2023-09-30] MEDS ORDERED: XARE15TA PO (15:27)
[2023-09-30] MEDS ORDERED: PANT40TA29 PO (15:27)
[2023-09-30] MEDS: DAPTOmycin 750 MG in NS 50 ML IV SCH (17:07)
[2023-09-30] MEDS: RIVAROXABAN 15MG TAB (XARELTO) PO SCH (17:07)
== END 2023-09-30 18:30 | disposition home health service (06) | DRG 377 ==
LOC: M ED 09:08 → M ED INP 12:00 → ENRESERV 12:58 → M PCU 13:20 → M MSPAV 09-28 18:45
PROVIDERS: ADMIT Internal Medicine Nephrology; ATTEND Internal Medicine Nephrology
PROC: XW033E5 Introduction of Remdesivir Anti-infective into Peripheral Vein, Percutaneous Approach, New Technology Group 5 (ICD-10-PCS; principal; 2023-09-27)
DX: K29.71 Gastritis, unspecified, with bleeding (principal); U07.1 COVID-19; I33.0 Acute and subacute infective endocarditis; I48.92 Unspecified atrial flutter; Q61.3 Polycystic kidney, unspecified; A69.20 Lyme disease, unspecified; D68.32 Hemorrhagic disorder due to extrinsic circulating anticoagulants; I48.0 Paroxysmal atrial fibrillation; I25.10 Atherosclerotic heart disease of native coronary artery without angina pectoris; I10 Essential (primary) hypertension; M41.9 Scoliosis, unspecified; N40.0 Benign prostatic hyperplasia without lower urinary tract symptoms; E83.42 Hypomagnesemia; Z95.3 Presence of xenogenic heart valve; Z95.5 Presence of coronary angioplasty implant and graft; K76.0 Fatty (change of) liver, not elsewhere classified; E78.5 Hyperlipidemia, unspecified; M10.9 Gout, unspecified; K21.9 Gastro-esophageal reflux disease without esophagitis; K40.20 Bilateral inguinal hernia, without obstruction or gangrene, not specified as recurrent; Z96.642 Presence of left artificial hip joint; Z98.1 Arthrodesis status; Z90.49 Acquired absence of other specified parts of digestive tract; Z79.01 Long term (current) use of anticoagulants; Z85.038 Personal history of other malignant neoplasm of large intestine; Z79.899 Other long term (current) drug therapy; Z85.05 Personal history of malignant neoplasm of liver

== ENCOUNTER 2023-12-24 11:57 | Day surgery (SDC) | payer MEDICARE ==
[~2023-12-24] VITALS: Ht 172.7 cm; Wt 90.7 kg
[~2023-12-24 11:57] MED LIST changes: +AMLO1TAB25 PO; +AMOX500C PO; +DAPT500V8 IV; +LIDOCAINE 2% 100MG/5ML SDV (FOR ANES.) As Ordered ONE; +OXYB5TAB14 PO; +PANT40TA29 PO; +SUCR1TA PO; +TAMS1CAP17 PO; +XARE15TA PO; +propofoL 200 MG/20 ML VIAL As Ordered ONE
[2023-12-24] MEDS: NS 1,000 ML IV ONE (12:45)
[2023-12-24 14:09] VITALS: TEMP 97.6
[2023-12-24 14:23] VITALS: BP 120/60; O2SAT 97
== END 2023-12-24 14:38 | disposition home or self-care (01) ==
LOC: M OPP 11:57
PROVIDERS: ATTEND Internal Medicine Gastroenterology
DX: K64.8 Other hemorrhoids (principal); K57.30 Diverticulosis of large intestine without perforation or abscess without bleeding; D12.2 Benign neoplasm of ascending colon; D12.3 Benign neoplasm of transverse colon; D50.9 Iron deficiency anemia, unspecified; K29.70 Gastritis, unspecified, without bleeding; K31.89 Other diseases of stomach and duodenum; K92.0 Hematemesis; Z79.02 Long term (current) use of antithrombotics/antiplatelets; Z79.2 Long term (current) use of antibiotics; Z79.899 Other long term (current) drug therapy; Z86.79 Personal history of other diseases of the circulatory system; I25.10 Atherosclerotic heart disease of native coronary artery without angina pectoris

== ENCOUNTER → 2024-04-10 | Outpatient (REF) | payer MEDICARE ==
[~2024-04-10] MED LIST changes: +DOXY-323 PO; -DOXY-443 PO; -FINA1TAB12 PO; +FINA1TAB4 PO; -LIDOCAINE 2% 100MG/5ML SDV (FOR ANES.) As Ordered ONE; -propofoL 200 MG/20 ML VIAL As Ordered ONE
[2024-04-10 11:24] LABS: APPEARANCE, URINE HAZY (CLEAR); BACTERIA, URINE AUTO 1+ (NEGATIVE); BILIRUBIN, URINE AUTO NEGATIVE (NEGATIVE); BLOOD, URINE BLOOD 1+ (NEGATIVE); COLOR, URINE YELLOW (YELLOW); GLUCOSE, URINE (UA) AUTO NEGATIVE (NEGATIVE); KETONE, URINE AUTO NEGATIVE (NEGATIVE); LEUKOCYTE ESTERASE, URINE AUTO 2+ (NEGATIVE); MUCUS, URINE SMALL (NEGATIVE); NITRITE, URINE AUTO NEGATIVE (NEGATIVE); PROTEIN, URINE AUTO 1+ mg/dL (NEGATIVE); RBC, URINE AUTO 12 /HPF (0-3); SPECIFIC GRAVITY URINE AUTO 1.015 (1.002-1.035); SQUAMOUS EPITHELIAL CELL UR AU 0 /HPF (0-6); UROBILINOGEN, URINE AUTO 0.2 mg/dL (0.0-2.0); WBC, URINE AUTO 137 /HPF (0-3)
== END ==
LOC: M LABSMT 08:43
PROVIDERS: ATTEND Physician Assistant
DX: R30.0 Dysuria (principal)